=== PATIENT | male | born 1955 ===

== ENCOUNTER → 2021-10-20 09:40 | Outpatient (CLI) | payer MEDICARE, BC, SELFPAY ==
--- NOTE | ~2021-10-20 | MR_ITS ---
EXAMINATION: MR knee LT wo con DATE: 10/20/2021 10:17 INDICATION: Left knee pain. Suspected stress fracture. TECHNIQUE: Magnetic resonance imaging (MRI) of the left knee was performed without intravenous contra st. Sequences included coronal PD-weighted FSE, coronal PD-weighted FS FSE, sagittal T2-weighted FSE , sagittal PD-weighted FS FSE and axial PD weighted fat saturated FSE. COMPARISON: None. FINDINGS: Medial compartment: Complex tear of the posterior horn of the medial meniscus which includes a parrot beak configuration tear plane which extends through the inner two thirds of the posterior horn. There is a secondary monica gitudinal oblique tear plane contacting the inferior articular surface which extends laterally into t he posterior horn and medially into the posterior body from the parrot beak tear plane. There is part ial thickness cartilage loss with mild chondral surface irregularity along the medial tibial plateau and anterior to central weightbearing medial femoral condyle. At the anterior medial tibial plateau i s appears to approach full-thickness with mild underlying subarticular edema-like signal change. Line ar low signal intensity underlying the articular cortex at the anterior weightbearing medial femoral condyle with prominent surrounding marrow edema consistent with a stress fracture which may be relate d to altered stress distribution resulting from the meniscal tear. Lateral compartment: Lateral meniscus is normal. Articular cartilage is normal. Patellofemoral compartment: Region of deep chondral ulceration involving greater than 50% the cartilage thickness at the patellar apical ridge and medial facet. Additional deep chondral ulceration involving significant portion of the trochlea both medially, laterally as well as the intervening trochlear groove. In places appears full/near full-thickness with underlying cortical irregularity with small central subchondral osteoph ytes and scattered mild subarticular edema-like signal change. Ligaments and tendons: Anterior and posterior cruciate ligaments are normal. The medial collateral ligament and fibular lui ateral ligament complex are normal. Minimal distal quadriceps tendinopathy with moderate sized enthes ophytes along its patellar insertion. The patellar tendon is normal. The visualized medial and latera l hamstring tendons as well as the iliotibial band are normal. Fluid: Moderate-sized left knee joint effusion. No loose osteochondral bodies identified. IMPRESSION: 1. Complex medial meniscal tear with subarticular stress fracture along the anterior weightbearing me dial femoral condyle which is likely related to altered weight distribution resulting from the menisc al tear. 2. Moderate osteoarthritis with moderate and high-grade chondromalacia in both the medial and patello femoral compartments. 3. Moderate-sized left knee joint effusion. Reviewed, dictated and finalized at location A. IMPRESSION: 1. Complex medial meniscal tear with subarticular stress fracture along the ant erior weightbearing medial femoral condyle which is likely related to altered w eight distribution resulting from the meniscal tear. 2. Moderate osteoarthritis with moderate and high-grade chondromalacia in both the medial and patellofemoral compartments. 3. Moderate-sized left knee joint effusion.
== END ==
PROVIDERS: PCP Orthopaedic Surgery; Visit Provider Orthopaedic Surgery
DX: S83.232A Complex tear of medial meniscus, current injury, left knee, initial encounter (principal); M16.12 Unilateral primary osteoarthritis, left hip; M22.42 Chondromalacia patellae, left knee; M25.462 Effusion, left knee
CPT/HCPCS: 73721